=== PATIENT | male | born 1955 | race Caucasian/White ===

== ENCOUNTER 2017-12-20 06:20 | Day surgery (SDC) | payer OTHER ==
[~2017-12-20 06:20] MED LIST: AMARYL PO; HYZAAR 100-251 EACH PO; PROTONIX40 MG PO; TOPROL XL100 M1 PO; ULTRACET PO; ZOCOR20 MG PO
[2017-12-20] MEDS ORDERED: ULTRACET PO (09:22)
== END 2017-12-20 10:40 | disposition home or self-care (01) ==
LOC: CIR.AMB 06:20
DX: C18.9 Malignant neoplasm of colon, unspecified (principal)

== ENCOUNTER 2020-08-08 07:32 | Day surgery (SDC) | payer OTHER | END 2020-08-08 11:35 | disposition home or self-care (01) | LOC: AMB-ENDOS 07:32 | PROVIDERS: ATTEND Surgery | DX: D12.3 Benign neoplasm of transverse colon (principal); D12.4 Benign neoplasm of descending colon; Z20.822 Contact with and (suspected) exposure to COVID-19 ==